=== PATIENT | female | born 1930 | race Caucasian/White ===

== ENCOUNTER 2017-11-09 13:08 | Inpatient (IN) | payer MEDICARE, MEDICAID ==
[2017-11-09] MEDS ORDERED: Sodium Chloride For Inhalation 0.9% 3 ML NEB ONE (13:41)
[2017-11-09 13:49] LABS: Band 25 % (5-11); Hemoglobin 11.8 g/dL (12.0-16.0); MDiff Complete? YES; Mean Corpuscular HGB CONC 34.5 g/dL (32.0-36.0); Mean Corpuscular Hemoglobin 29.7 pg (27.0-31.0); Mean Platelet Volume 6.4 fL (7.4-10.4); Monocytes 2 % (0-10); Neutrophil 72 % (42-75); PLT Morphology Comment Appears Adequate; Platelet Count 298 thou/uL (130-400); RBC Distribution Width 10.4 % (11.5-14.5); Reactive Lymphocytes 1 % (0-10); Red Blood Cell (RBC) Count 3.97 mill/uL (4.20-5.40); Toxic Granulation SLIGHT; Vacuoles SLIGHT; White Blood Cell (WBC) Count 23.6 thou/uL (4.8-10.8)
[2017-11-09 13:55] LABS: ALT (SGPT) 17 U/L (8-55); AST (SGOT) 15 U/L (5-34); Albumin 3.8 g/dL (3.4-4.8); Alkaline Phosphatase 64 U/L (40-150); Anion Gap 15 mmol/L (10-20); BUN (Urea Nitrogen) 16 mg/dL (9.8-20.1); Bilirubin, Total 0.6 mg/dL (0.2-1.2); Calc. Creatinine Clearance 0 mL/min (70-130); Calcium 8.8 mg/dL (7.8-10.44); Carbon Dioxide 26 mmol/L (23-31); Chloride 88 mmol/L (98-107); Estimated GFR-MDRD 60; Glucose 282 mg/dL (83-110); Potassium 4.6 mmol/L (3.5-5.1); Protein, Total 6.8 g/dL (6.0-8.3); Sodium 124 mmol/L (136-145)
[2017-11-09 13:58] LABS: CKMB 1.4 ng/mL (0-6.6); Troponin I 0.017 ng/mL (< 0.028)
--- NOTE | 2017-11-09 14:03 | RAD ---
SINGLE VIEW OF THE CHEST: Comparison: None. History: Cough, congestion, wheezing. FINDINGS: Single view of the chest shows a normal sized cardiomediastinal silhouette with atherosclerotic calci fications in the aorta. Increased interstitial markings are present. There is no evidence of consolid ation, mass, or pleural effusion. IMPRESSION: No evidence of acute cardiopulmonary disease. POS: [facility]
[2017-11-09] MEDS ORDERED: Levofloxacin 500 mg/D5W 100 ml Premix Bag ONE (14:06)
[2017-11-09 14:42] LABS: Magnesium 2.1 mg/dL (1.6-2.6); Phosphorus 3.3 mg/dL (2.3-4.7)
[2017-11-09 18:08] LABS: Bilirubin Negative (Negative); Blood, Urine Moderate (Negative); Clarity CLEAR (Clear); Glucose, Urine (Dipstick) Negative (Negative); Leukocyte Negative (Negative); Nitrite Negative (Negative); Protein, Urine (Dipstick) Negative (Neg-Trace); Specific Gravity, Urine 1.003 (1.002-1.036); Urobilinogen 0.2 mg/dL (0.2-1.0)
[2017-11-09 18:12] LABS: Bacteria/HPF None Seen HPF (None Seen); Hyaline Casts/LPF 0-3 HYALINE CAST LPF (0-3 Hyaline); Squamous Epithelial None Seen HPF (0-3); WBC/HPF None Seen HPF (0-3)
[2017-11-09] MEDS: Sodium Chloride 0.9% 1,000 ML IV SCH (19:09)
[2017-11-09] MEDS ORDERED: Morphine ER 30 MG TAB PO SCH (22:45)
[2017-11-09] MEDS ORDERED: Lisinopril/Hydrochlorothiazide 20 mg/12.5 mg Tablet PO SCH (22:45)
[2017-11-10] MEDS: Sodium Chloride 0.9% 1,000 ML IV SCH ×3 (01:52→12:39)
[2017-11-10] MEDS ORDERED: Acetaminophen 325 MG TAB PO PRN (03:17)
[2017-11-10] MEDS ORDERED: Ondansetron HCl/PF 4 MG/2 ML Vial IVP PRN (03:17)
[2017-11-10] MEDS ORDERED: BROMPHENIR PSEUDOEPHED DM PO SCH (06:00)
[2017-11-10] MEDS: Levothyroxine Sodium 75 MCG TAB PO SCH (07:24)
[2017-11-10 08:09] LABS: #Lymphocytes 0.6 thou/uL (1.20-3.40); #Neutrophils 14.5 thou/uL (1.40-6.50); %Basophils 0.1 % (0.0-1.0); %Eosinophils 0.3 % (0.0-10.0); %Lymphocytes 3.8 % (21.0-51.0); %Neutrophils 89.8 % (42.0-75.0); Hemoglobin 11.9 g/dL (12.0-16.0); Mean Corpuscular HGB CONC 34.4 g/dL (32.0-36.0); Mean Corpuscular Hemoglobin 31.4 pg (27.0-31.0); Mean Corpuscular Volume 91.4 fL (78.0-98.0); Platelet Count 290 thou/uL (130-400); RBC Distribution Width 11.2 % (11.5-14.5); Red Blood Cell (RBC) Count 3.77 mill/uL (4.20-5.40); White Blood Cell (WBC) Count 16.2 thou/uL (4.8-10.8)
[2017-11-10] MEDS: Diazepam 5 MG TAB PO SCH ×2 (08:13→20:22)
[2017-11-10] MEDS: Gabapentin 300 MG CAP PO SCH (08:13)
[2017-11-10] MEDS: Ascorbic Acid 500 mg Chewable Tablet PO SCH ×4 (08:13→20:30)
[2017-11-10] MEDS: DULoxetine 60 MG CAP PO SCH (08:13)
[2017-11-10] MEDS: Multivitamin W/ Minerals 1 TAB PO SCH ×3 (08:14→08:34)
[2017-11-10] MEDS: Senokot S 8.6-50 MG TAB PO SCH (08:14)
[2017-11-10] MEDS: Ziprasidone 20 MG CAP PO SCH ×3 (08:14→20:31)
[2017-11-10] MEDS: cloNIDine 0.1 MG TAB PO SCH ×3 (08:14→20:23)
[2017-11-10] MEDS: Morphine ER 30 MG TAB PO SCH ×2 (08:15→20:20)
[2017-11-10] MEDS: Enoxaparin Sodium 40 MG/0.4 ML SYRINGE SC SCH (08:15)
[2017-11-10] MEDS: Polyethylene Glycol 3350 17 GM Packet PO SCH (08:16)
[2017-11-10 08:24] LABS: Anion Gap 14 mmol/L (10-20); BUN (Urea Nitrogen) 10 mg/dL (9.8-20.1); Calc. Creatinine Clearance 58 mL/min (70-130); Carbon Dioxide 25 mmol/L (23-31); Chloride 91 mmol/L (98-107); Estimated GFR-MDRD 79; Glucose 182 mg/dL (83-110); Potassium 4.5 mmol/L (3.5-5.1); Sodium 125 mmol/L (136-145)
[2017-11-10] MEDS: busPIRone HCl 5 MG TAB PO SCH ×3 (08:45→20:22)
--- NOTE | 2017-11-10 08:48 | HP ---
CODE STATUS: FULL CODE. PRIMARY CARE PHYSICIAN: Dr. Raymond Niño. CHIEF COMPLAINT: Worsening cough. HISTORY OF PRESENT ILLNESS: This is an 87-year-old female patient with past medical history of hypot hyroidism, hyperlipidemia, hypertension came to the hospital after having moderate gradually worsenin g cough, with no clear triggers, no alleviating factors. The symptoms have been present since last n ight, associated with wheezing. The patient has had some cough medication with no relief. REVIEW OF SYSTEMS: Constitutional: No fever, no chill, generalized weakness. Respiratory: Patient had cough. No sputum production or shortness of breath. Cardiovascular: No chest pain, palpitatio ns, shortness of breath. Gastrointestinal: No nausea, vomiting, no diarrhea or abdominal pain. AUTOMATION MANAGER : No dizziness, headache, feeling lightheaded. Genitourinary: No burning with urination. EXTREMIT Y: No leg swelling. All other systems were reviewed and negative except for the findings mentioned above. PAST MEDICAL HISTORY: Patient has a history of hypothyroidism, hyperlipidemia, cholesterol, hyperten ry, breast cancer. PSYCHIATRIC HISTORY: Anxiety and depression. SOCIAL HISTORY: No alcohol, no smoking history. No drug use. Patient was a former smoker, quit 10 years ago. FAMILY HISTORY: Reviewed and noncontributory for current presentation. ALLERGIES: DEMEROL, MEPERIDINE, SECOBARBITAL. REPORTED MEDICATIONS: Alendronate, amlodipine, wshzirfr-itxhiqecn-gxecspyechz, duloxetine, gabapenti n, levothyroxine. PHYSICAL EXAMINATION: VITAL SIGNS: On presentation, blood pressure 136/49 with heart rate 89, respiratory rate was 19, tem perature 98.5, pain 10, oxygen duration 98 on room air. GENERAL APPEARANCE: The patient is alert, oriented, not in any acute distress. HEENT: Eyes, normal conjunctivae. Moist oral mucosa. Anicteric. NECK: No JVD. RESPIRATORY: Bilateral air entry is decreased with bilateral rales in the lower bases, bilateral whe ezing noted, scattered, symmetric expansion. CARDIOVASCULAR: Normal rate, regular rhythm. No murmurs, no gallop. No edema. ABDOMEN: Soft, normal bowel sounds. MUSCULOSKELETAL: Baseline range of motion and strength. No tenderness. SKIN: Warm and intact. No pallor, no rash, and redness. NEUROLOGIC: Baseline sensory. No evidence of any new focal weakness. Baseline speech. Cranial nerves seem to be intact. PSYCHIATRIC: Patient is in good mood, anxiety, oriented optimal judgment. LABORATORY DATA: Reviewed. Patient has white count 23.6, hemoglobin 11.8, MCV 86, platelet count 29 2. Chemistry: Sodium 134, potassium 4.6, chloride 88, carbon dioxide 26, anion gap 18, BUN 16, crea tinine 0.89, GFR 60, glucose 282. Lactic acid 1.8, calcium 8.8. LFTs are normal. CK-MB 1.4. Tropo fabián is negative. Beta natriuretic peptide 187. Serum total protein 6.8, albumin 2.8, globulin 3.0. UA was reviewed and was negative. Chest x-ray was reviewed. No evidence of acute cardiopulmonary d isease. EKG was reviewed and was discussed with performing physician in ER. Patient has normal sinu s rhythm at the rate of 78, nonspecific acute changes or ischemia. Patient has Q-waves in wave V1 an d V3. ASSESSMENT AND PLAN: The patient will be placed in the hospital with following medical problems: 1. Possible acute bronchitis. Patient has wheezing, shortness of breath, cough, sputum production. No history of chronic obstructive pulmonary disease in the past. Place the patient on Levaquin, giv e some DuoNebs, we will monitor, we will treat accordingly. 2. Hypothyroidism, continue hormone replacement. 3. Hyperlipidemia. Reconcile home meds, advised to have a diet with low-cholesterol. 4. Controlled hypertension on presentation. Reconcile home medications, adjust treatment as needed. 5. Leukocytosis, likely secondary to acute lung infection, treatment as above. 6. Normocytic anemia, it is stable, can be followed as outpatient. 7. Hyponatremia with sodium 134, this is moderate, we will monitor, will attempt to correct sodium _ ____ mEq in the next 24 hours. 8. Hyperglycemia with blood sugar 282. 9. Deep venous thrombosis prophylaxis.
[2017-11-10] MEDS ORDERED: Amlodipine 5 MG TAB PO SCH ×3 (09:00→22:30)
[2017-11-10] MEDS ORDERED: Morphine ER 30 MG TAB PO SCH (09:00)
[2017-11-10] MEDS ORDERED: Lisinopril/Hydrochlorothiazide 20 mg/12.5 mg Tablet PO SCH ×2 (09:00)
[2017-11-10] MEDS ORDERED: Ibuprofen 100 MG/5 ML UDCUP PO SCH (10:30)
[2017-11-10] MEDS ORDERED: Ibuprofen 200 MG TAB PO SCH (10:45)
[2017-11-10 12:30] VITALS: BMI 26.2
--- NOTE | 2017-11-10 13:24 | PDOC.PN ---
- Subjective Encounter Start Date: 11/10/17 Encounter Start Time: 13:24 Subjective: c/o pain in both feet,there for 4 years -: has seen multiple doctors & takem multiple meds-has RA -: denies any CP/congestion/cough/SOB - Objective Resuscitation Status: Resuscitation Status FULL:Full Resuscitation MAR Reviewed: Yes Vital Signs & Weight: Vital Signs (12 hours) Temp Pulse Pulse Resp BP BP BP 11/10/17 12:40 88 158/79 H 11/10/17 12:00 98.8 F 83 20 133/68 11/10/17 11:03 84 133/68 11/10/17 08:14 142/75 H 11/10/17 08:13 90 142/75 H 11/10/17 08:00 99.1 F 90 20 159/83 H 11/10/17 05:18 98.4 F 18 Pulse Ox 11/10/17 12:40 11/10/17 12:00 90 L 11/10/17 11:03 11/10/17 08:14 11/10/17 08:13 11/10/17 08:00 92 L 11/10/17 05:18 92 L Weight Admit Weight 149 lb 14.4 oz Weight 147 lb 12.8 oz I&O: 11/09/17 11/10/17 11/11/17 06:59 06:59 06:59 Intake Total 550 Balance 550 Result Diagrams: 11/10/17 07:59 11/10/17 07:59 Phys Exam - Physical Examination Constitutional: NAD HEENT: PERRLA, moist MMs, sclera anicteric, oral pharynx no lesions Neck: no nodes, no JVD, supple, full ROM Respiratory: no wheezing, no rales, no rhonchi, clear to auscultation bilateral Cardiovascular: RRR, no significant murmur Gastrointestinal: soft, non-tender, no distention, positive bowel sounds Musculoskeletal: no edema, pulses present Neurological: non-focal, normal sensation, moves all 4 limbs Deviation from normal: agitated Skin: no rash Dx/Plan (1) SIRS (systemic inflammatory response syndrome) Code(s): R65.10 - SIRS OF NON-INFECTIOUS ORIGIN W/O ACUTE ORGAN DYSFUNCTION Status: Acute (2) Acute bronchitis Code(s): J20.9 - ACUTE BRONCHITIS, UNSPECIFIED Status: Acute (3) Hyponatremia Code(s): E87.1 - HYPO-OSMOLALITY AND HYPONATREMIA Status: Acute (4) Anxiety and depression Code(s): F41.9 - ANXIETY DISORDER, UNSPECIFIED; F32.9 - MAJOR DEPRESSIVE DISORDER, SINGLE EPISODE, UNSPECIFIED Status: Chronic (5) Dyslipidemia Code(s): E78.5 - HYPERLIPIDEMIA, UNSPECIFIED Status: Chronic (6) Hypertension Code(s): I10 - ESSENTIAL (PRIMARY) HYPERTENSION Status: Chronic (7) Hypothyroidism Code(s): E03.9 - HYPOTHYROIDISM, UNSPECIFIED Status: Chronic - Plan continue antibiotics, PT/OT, psychiatric social worker supervisor, speech therapy, incentive spirometry, out of bed/ambulate, DVT proph w/SCDs cont empiric ABx.follow Cx results.WBC imrpoving -: DC HCTZ as a acuse of hyponatremia.reduce IVF -: Rehab eval.OT,PT,[facility] -: likley DC tomorrow if accpeted and sodium better -: no clear evidence of infection. * . Review of Systems - Review of Systems Constitutional: weakness, malaise. negative: fever, chills, sweats, other ENT: negative: Ear Pain, Ear Discharge, Nose Pain, Nose Discharge, Nose Congestion, Mouth Pain, Mouth Swelling, Throat Pain, Throat Swelling, Other Respiratory: negative: Cough, Dry, Shortness of Breath, Hemoptysis, SOB with Excertion, Pleuritic Pain, Sputum, Wheezing Cardiovascular: negative: chest pain, palpitations, orthopnea, paroxysmal nocturnal dyspnea, edema, light headedness, other Gastrointestinal: negative: Nausea, Vomiting, Abdominal Pain, Diarrhea, Constipation, Melena, Hematochezia, Other Genitourinary: negative: Dysuria, Frequency, Incontinence, Hematuria, Retention , Other Musculoskeletal: Foot Pain. negative: Neck Pain, Shoulder Pain, Arm Pain, Back Pain, Hand Pain, Leg Pain, Other Skin: negative: Rash, Lesions, Milo, Bruising, Other Neurological: negative: Weakness, Numbness, Incoordination, Change in Speech, Confusion, Seizures, Other - Medications/Allergies Allergies/Adverse Reactions: Allergies Allergy/AdvReac Type Severity Reaction Status Date / Time meperidine HCl [From Demerol] Allergy Verified 04/10/15 17:55 secobarbital sodium Allergy Verified 04/10/15 17:55 [From Seconal] Medications: Current Medications Acetaminophen (Tylenol) 650 mg PO Q4H PRN PRN Reason: Headache/Fever or Pain Last Admin: 11/10/17 09:55 Dose: 650 mg Albuterol/Ipratropium (Duoneb) 3 ml NEB Q4H PRN PRN Reason: SOB &/or Wheezing Amlodipine Besylate (Norvasc) 5 mg PO DAILY [facility] Last Admin: 11/10/17 08:13 Dose: 5 mg Ascorbic Acid (Vitamin C) 500 mg PO BID [facility] Last Admin: 11/10/17 08:33 Dose: 500 mg Atorvastatin Calcium (Lipitor) 10 mg PO HS [facility] Buspirone HCl (Buspar) 5 mg PO TID [facility] Last Admin: 11/10/17 08:45 Dose: 5 mg Cholecalciferol (Vitamin D3) 1,000 units PO DAILY [facility] Last Admin: 11/10/17 08:33 Dose: 1,000 units Clonidine (Catapres) 0.1 mg PO TID [facility] Last Admin: 11/10/17 08:14 Dose: 0.1 mg Diazepam (Valium) 5 mg PO BID [facility] Last Admin: 11/10/17 08:13 Dose: 5 mg Duloxetine HCl (Cymbalta) 60 mg PO DAILY [facility] Last Admin: 11/10/17 08:13 Dose: 60 mg Enoxaparin Sodium (Lovenox) 40 mg SC 0900 [facility] Last Admin: 11/10/17 08:15 Dose: 40 mg Famotidine (Pepcid) 20 mg PO HS [facility] Gabapentin (Neurontin) 300 mg PO DAILY [facility] Last Admin: 11/10/17 08:13 Dose: 300 mg Levofloxacin 500 mg/ Device 100 mls @ 100 mls/hr IVPB 1400 [facility] Sodium Chloride (Normal Saline 0.9%) 1,000 mls @ 50 mls/hr IV .Q20H [facility] Iron/Minerals/Multivitamins (Theragran M) 1 tab PO DAILY [facility] Last Admin: 11/10/17 08:34 Dose: 1 tab Levothyroxine Sodium (Synthroid) 75 mcg PO 0600 [facility] Last Admin: 11/10/17 07:24 Dose: 75 mcg Lisinopril (Zestril) 20 mg PO BID [facility] Morphine Sulfate (Ms Contin) 30 mg PO BID [facility] Last Admin: 11/10/17 08:15 Dose: 30 mg Ondansetron HCl (Zofran) 4 mg IVP Q6H PRN PRN Reason: Nausea/Vomiting Pantoprazole Sodium (Protonix) 40 mg PO DAILY [facility] [Bromphenir- (Pseudoephed-Dm Syr]) 0 each PO Q8HR [facility] Polyethylene Glycol (Miralax) 17 gm PO DAILY [facility] Last Admin: 11/10/17 08:16 Dose: 17 gm Senna/Docusate Sodium (Senokot S) 1 tab PO DAILY [facility] Last Admin: 11/10/17 08:14 Dose: 1 tab Tramadol HCl (Ultram) 50 mg PO PRN PRN PRN Reason: Pain Trazodone HCl (Desyrel) 50 mg PO HS PRN PRN Reason: Insomnia Ziprasidone (Geodon) 20 mg PO BID [facility] Last Admin: 11/10/17 08:47 Dose: Not Given
[2017-11-10] MEDS ORDERED: Sodium Chloride 0.9% 1,000 ML IV SCH (13:26)
[2017-11-10] MEDS: Lisinopril 20 MG TAB PO SCH (20:24)
[2017-11-10] MEDS: Atorvastatin Calcium 10 MG TAB PO SCH (20:29)
[2017-11-10] MEDS: Famotidine 20 MG TAB PO SCH (20:29)
[2017-11-10] MEDS ORDERED: cloNIDine 0.1 MG TAB PO PRN (22:23)
[2017-11-10] MEDS: Guaifenesin DM 100-10/5 ML UDCUP PO PRN (22:37)
[2017-11-11] MEDS: Levothyroxine Sodium 75 MCG TAB PO SCH (05:21)
[2017-11-11] MEDS: Polyethylene Glycol 3350 17 GM Packet PO SCH (08:13)
[2017-11-11] MEDS: Enoxaparin Sodium 40 MG/0.4 ML SYRINGE SC SCH (08:13)
[2017-11-11] MEDS: Morphine ER 30 MG TAB PO SCH ×2 (08:14→20:31)
[2017-11-11] MEDS: Senokot S 8.6-50 MG TAB PO SCH (08:14)
[2017-11-11] MEDS: Gabapentin 300 MG CAP PO SCH (08:14)
[2017-11-11] MEDS: Diazepam 5 MG TAB PO SCH ×2 (08:14→20:31)
[2017-11-11] MEDS: Multivitamin W/ Minerals 1 TAB PO SCH (08:15)
[2017-11-11] MEDS: Amlodipine 5 MG TAB PO SCH ×2 (08:16→20:30)
[2017-11-11] MEDS: Lisinopril 20 MG TAB PO SCH ×2 (08:16→20:31)
[2017-11-11] MEDS: cloNIDine 0.1 MG TAB PO SCH ×3 (08:16→20:30)
[2017-11-11] MEDS: busPIRone HCl 5 MG TAB PO SCH ×3 (08:16→20:30)
[2017-11-11] MEDS: DULoxetine 60 MG CAP PO SCH (08:16)
[2017-11-11] MEDS: Ascorbic Acid 500 mg Chewable Tablet PO SCH ×2 (08:16→20:31)
[2017-11-11 08:17] LABS: #Eosinphils 0.1 thou/uL (0.0-0.7); #Lymphocytes 0.6 thou/uL (1.20-3.40); #Monocytes 0.9 thou/uL (0.11-0.59); #Neutrophils 12.3 thou/uL (1.40-6.50); %Basophils 0.2 % (0.0-1.0); %Eosinophils 0.6 % (0.0-10.0); %Lymphocytes 4.5 % (21.0-51.0); %Monocytes 6.5 % (0.0-10.0); %Neutrophils 88.2 % (42.0-75.0); Hemoglobin 12.8 g/dL (12.0-16.0); Mean Corpuscular HGB CONC 33.9 g/dL (32.0-36.0); Mean Corpuscular Volume 91.4 fL (78.0-98.0); Mean Platelet Volume 5.9 fL (7.4-10.4); Platelet Count 336 thou/uL (130-400); RBC Distribution Width 11.1 % (11.5-14.5); Red Blood Cell (RBC) Count 4.12 mill/uL (4.20-5.40); White Blood Cell (WBC) Count 13.9 thou/uL (4.8-10.8)
[2017-11-11] MEDS: Guaifenesin DM 100-10/5 ML UDCUP PO PRN ×2 (08:27→21:08)
[2017-11-11 08:37] LABS: Anion Gap 14 mmol/L (10-20); BUN (Urea Nitrogen) 10 mg/dL (9.8-20.1); Calc. Creatinine Clearance 55 mL/min (70-130); Calcium 9.1 mg/dL (7.8-10.44); Carbon Dioxide 26 mmol/L (23-31); Chloride 90 mmol/L (98-107); Estimated GFR-MDRD 74; Glucose 178 mg/dL (83-110); Potassium 4.3 mmol/L (3.5-5.1); Sodium 126 mmol/L (136-145)
[2017-11-11] MEDS: Ziprasidone 20 MG CAP PO SCH ×2 (09:29→20:31)
[2017-11-11 14:23] LABS: Sodium 125 mmol/L (136-145)
--- NOTE | 2017-11-11 16:10 | PDOC.PN ---
- Subjective Encounter Start Date: 11/11/17 Encounter Start Time: 16:08 Subjective: pt was to be discharged but sodium level low -: pt refuses to adhere to fluid restriction,wants to leave -: no new complaints,no overnight events - Objective Resuscitation Status: Resuscitation Status FULL:Full Resuscitation MAR Reviewed: Yes Vital Signs & Weight: Vital Signs (12 hours) Temp Pulse Resp BP BP Pulse Ox 11/11/17 12:00 97.8 F 81 18 134/62 89 L 11/11/17 08:16 86 190/76 H 11/11/17 08:00 97.8 F 86 18 90 L 11/11/17 07:25 97.8 F 90 18 139/66 90 L Weight Admit Weight 149 lb 14.4 oz Weight 147 lb 12.8 oz I&O: 11/10/17 11/11/17 11/12/17 06:59 06:59 06:59 Intake Total 550 2670 240 Output Total 825 Balance 550 1845 240 Result Diagrams: 11/11/17 08:09 11/11/17 13:55 Additional Labs: Microbiology 11/09/17 15:05 Nasal swab Influenza Types A,B Direct EIA - Final labs reviewed Phys Exam - Physical Examination Constitutional: NAD HEENT: PERRLA, moist MMs, sclera anicteric, oral pharynx no lesions Neck: no nodes, no JVD, supple, full ROM Respiratory: no wheezing, no rales, no rhonchi, clear to auscultation bilateral Cardiovascular: RRR, no significant murmur, no rub Gastrointestinal: soft, non-tender, no distention, positive bowel sounds Musculoskeletal: no edema, pulses present Neurological: non-focal, normal sensation, moves all 4 limbs Dx/Plan (1) SIRS (systemic inflammatory response syndrome) Code(s): R65.10 - SIRS OF NON-INFECTIOUS ORIGIN W/O ACUTE ORGAN DYSFUNCTION Status: Acute Comment: no evidence of infection. (2) Acute bronchitis Code(s): J20.9 - ACUTE BRONCHITIS, UNSPECIFIED Status: Acute (3) Hyponatremia Code(s): E87.1 - HYPO-OSMOLALITY AND HYPONATREMIA Status: Acute (4) Anxiety and depression Code(s): F41.9 - ANXIETY DISORDER, UNSPECIFIED; F32.9 - MAJOR DEPRESSIVE DISORDER, SINGLE EPISODE, UNSPECIFIED Status: Chronic (5) Dyslipidemia Code(s): E78.5 - HYPERLIPIDEMIA, UNSPECIFIED Status: Chronic (6) Hypertension Code(s): I10 - ESSENTIAL (PRIMARY) HYPERTENSION Status: Chronic (7) Hypothyroidism Code(s): E03.9 - HYPOTHYROIDISM, UNSPECIFIED Status: Chronic - Plan DVT proph w/SCDs lost IV access. change ABx to PO. -: sodium still low .likley due to HCTZ & anti depressants -: will consult Nephrology.fluid restriction -: recheck in am -: HD stable .hold DC for now * . Review of Systems - Review of Systems Constitutional: negative: fever, chills, sweats, weakness, malaise, other ENT: negative: Ear Pain, Ear Discharge, Nose Pain, Nose Discharge, Nose Congestion, Mouth Pain, Mouth Swelling, Throat Pain, Throat Swelling, Other Respiratory: negative: Cough, Dry, Shortness of Breath, Hemoptysis, SOB with Excertion, Pleuritic Pain, Sputum, Wheezing Cardiovascular: negative: chest pain, palpitations, orthopnea, paroxysmal nocturnal dyspnea, edema, light headedness, other Gastrointestinal: negative: Nausea, Vomiting, Abdominal Pain, Diarrhea, Constipation, Melena, Hematochezia, Other Genitourinary: negative: Dysuria, Frequency, Incontinence, Hematuria, Retention , Other Musculoskeletal: Foot Pain. negative: Neck Pain, Shoulder Pain, Arm Pain, Back Pain, Hand Pain, Leg Pain, Other Neurological: negative: Weakness, Numbness, Incoordination, Change in Speech, Confusion, Seizures, Other - Medications/Allergies Allergies/Adverse Reactions: Allergies Allergy/AdvReac Type Severity Reaction Status Date / Time meperidine HCl [From Demerol] Allergy Verified 04/10/15 17:55 secobarbital sodium Allergy Verified 04/10/15 17:55 [From Seconal] Medications: Current Medications Acetaminophen (Tylenol) 650 mg PO Q4H PRN PRN Reason: Headache/Fever or Pain Last Admin: 11/10/17 09:55 Dose: 650 mg Albuterol/Ipratropium (Duoneb) 3 ml NEB Q4H PRN PRN Reason: SOB &/or Wheezing Amlodipine Besylate (Norvasc) 5 mg PO BID [facility] Last Admin: 11/11/17 08:16 Dose: 5 mg Ascorbic Acid (Vitamin C) 500 mg PO BID [facility] Last Admin: 11/11/17 08:16 Dose: 500 mg Atorvastatin Calcium (Lipitor) 10 mg PO HS [facility] Last Admin: 11/10/17 20:29 Dose: 10 mg Buspirone HCl (Buspar) 5 mg PO TID [facility] Last Admin: 11/11/17 08:16 Dose: 5 mg Cholecalciferol (Vitamin D3) 1,000 units PO DAILY [facility] Last Admin: 11/11/17 08:15 Dose: 1,000 units Clonidine (Catapres) 0.1 mg PO TID [facility] Last Admin: 11/11/17 08:16 Dose: 0.1 mg Clonidine (Catapres) 0.1 mg PO Q4H PRN PRN Reason: BP > 180/100 Diazepam (Valium) 5 mg PO BID [facility] Last Admin: 11/11/17 08:14 Dose: 5 mg Duloxetine HCl (Cymbalta) 60 mg PO DAILY [facility] Last Admin: 11/11/17 08:16 Dose: 60 mg Enoxaparin Sodium (Lovenox) 40 mg SC 0900 [facility] Last Admin: 11/11/17 08:13 Dose: 40 mg Famotidine (Pepcid) 20 mg PO HS [facility] Last Admin: 11/10/17 20:29 Dose: 20 mg Gabapentin (Neurontin) 300 mg PO DAILY [facility] Last Admin: 11/11/17 08:14 Dose: 300 mg Guaifenesin/Dextromethorphan (Robitussin Dm) 20 ml PO Q6H PRN PRN Reason: Cough Last Admin: 11/11/17 08:27 Dose: 20 ml Levofloxacin 500 mg/ Device 100 mls @ 100 mls/hr IVPB 1400 [facility] Last Admin: 11/11/17 13:58 Dose: 100 mls Iron/Minerals/Multivitamins (Theragran M) 1 tab PO DAILY [facility] Last Admin: 11/11/17 08:15 Dose: 1 tab Levothyroxine Sodium (Synthroid) 75 mcg PO 0600 [facility] Last Admin: 11/11/17 05:21 Dose: 75 mcg Lisinopril (Zestril) 20 mg PO BID [facility] Last Admin: 11/11/17 08:16 Dose: 20 mg Morphine Sulfate (Ms Contin) 30 mg PO BID [facility] Last Admin: 11/11/17 08:14 Dose: 30 mg Ondansetron HCl (Zofran) 4 mg IVP Q6H PRN PRN Reason: Nausea/Vomiting Pantoprazole Sodium (Protonix) 40 mg PO DAILY [facility] Last Admin: 11/11/17 08:15 Dose: 40 mg [Bromphenir- (Pseudoephed-Dm Syr]) 0 each PO Q8HR [facility] Polyethylene Glycol (Miralax) 17 gm PO DAILY [facility] Last Admin: 11/11/17 08:13 Dose: 17 gm Senna/Docusate Sodium (Senokot S) 1 tab PO DAILY [facility] Last Admin: 11/11/17 08:14 Dose: 1 tab Tramadol HCl (Ultram) 50 mg PO Q6H PRN PRN Reason: Moderate Pain (4-6) Trazodone HCl (Desyrel) 50 mg PO HS PRN PRN Reason: Insomnia Ziprasidone (Geodon) 20 mg PO BID [facility] Last Admin: 11/11/17 09:29 Dose: 20 mg
[2017-11-11] MEDS: Famotidine 20 MG TAB PO SCH (20:31)
[2017-11-11] MEDS: Atorvastatin Calcium 10 MG TAB PO SCH (20:31)
[2017-11-11] MEDS ORDERED: Sodium Chloride 0.9% 1,000 ML IV SCH (22:30)
[2017-11-12] MEDS: Sodium Chloride 0.9% 1,000 ML IV SCH ×4 (00:15→20:31)
--- NOTE | 2017-11-12 02:49 | CON ---
DATE OF CONSULTATION: 11/11/2017 CONSULTING PHYSICIAN: Davey Moore M.D. REQUESTING PHYSICIAN: Dr. Garza. REASON FOR CONSULTATION: Hyponatremia. IMPRESSION: Hyponatremia. This is likely hypovolemic hyponatremia. PLAN: 1. Discontinue fluid restriction. 2. Gentle IV fluid resuscitation with normal saline. 3. Increase protein intake of increased animal meat. 4. Further management to be dependent on the clinical course. HISTORY OF PRESENT ILLNESS: History is that of an 87-year-old female patient who presented here with worsening cough. Patient noted with a sodium of 124 on presentation and has remained in that range, thought the need for renal consultation. PAST MEDICAL HISTORY: Significant for hypothyroidism, dyslipidemia, cholesterol, hypertension and br east cancer. SOCIAL HISTORY: No alcohol, no tobacco, no illicit drug use. FAMILY HISTORY: None significant related to presenting illness. ALLERGIES: DEMEROL, MEPERIDINE, and SECOBARBITAL. REVIEW OF SYSTEMS: As documented in the body of the history. Other systems reviewed and found not t o be significantly related to the presenting illness. PHYSICAL EXAMINATION: GENERAL: The patient was found to be somewhat hard hearing noted with the following vital signs. VITAL SIGNS: Afebrile with temperature 97.6, pulse 85, respirations of 20, O2 sat , blood press ure 149/66. HEENT: Unremarkable with dry oral mucosa. Neck is supple. No conjunctival injection or icterus. CARDIOVASCULAR SYSTEM: First and second heart sounds were heard. RESPIRATORY SYSTEM: Clear to auscultation anteriorly. DIGESTIVE SYSTEM: Reviewed a benign abdomen. EXTREMITIES: No peripheral edema. SKIN: Revealed dry skin. SUMMARY: An 87-year-old female patient who presented here with worsening shortness of breath noted w ith hyponatremia likely in the context of hypovolemic hyponatremia possibly compounded by suboptimall y controlled hypothyroidism. Thank you for this consultation. We will follow with you.
[2017-11-12] MEDS: Levothyroxine Sodium 75 MCG TAB PO SCH (05:43)
[2017-11-12 05:56] LABS: Anion Gap 12 mmol/L (10-20); BUN (Urea Nitrogen) 11 mg/dL (9.8-20.1); Calc. Creatinine Clearance 58 mL/min (70-130); Calcium 8.4 mg/dL (7.8-10.44); Carbon Dioxide 26 mmol/L (23-31); Chloride 91 mmol/L (98-107); Estimated GFR-MDRD 79; Glucose 119 mg/dL (83-110); Potassium 4.2 mmol/L (3.5-5.1); Sodium 125 mmol/L (136-145)
[2017-11-12] MEDS: Morphine ER 30 MG TAB PO SCH ×2 (08:13→20:06)
[2017-11-12] MEDS: Diazepam 5 MG TAB PO SCH ×2 (08:15→20:04)
[2017-11-12] MEDS: cloNIDine 0.1 MG TAB PO SCH ×3 (08:17→20:06)
[2017-11-12] MEDS: Amlodipine 5 MG TAB PO SCH ×2 (08:17→20:04)
[2017-11-12] MEDS: Lisinopril 20 MG TAB PO SCH ×2 (08:18→20:07)
[2017-11-12] MEDS: DULoxetine 60 MG CAP PO SCH (08:19)
[2017-11-12] MEDS: Ascorbic Acid 500 mg Chewable Tablet PO SCH ×2 (08:19→20:04)
[2017-11-12] MEDS: Gabapentin 300 MG CAP PO SCH (08:20)
[2017-11-12] MEDS: busPIRone HCl 5 MG TAB PO SCH ×3 (08:20→20:06)
[2017-11-12] MEDS: Multivitamin W/ Minerals 1 TAB PO SCH (08:21)
[2017-11-12] MEDS: Ziprasidone 20 MG CAP PO SCH ×2 (08:22→20:04)
[2017-11-12] MEDS: Senokot S 8.6-50 MG TAB PO SCH (08:22)
[2017-11-12] MEDS: Polyethylene Glycol 3350 17 GM Packet PO SCH (08:22)
[2017-11-12] MEDS: Enoxaparin Sodium 40 MG/0.4 ML SYRINGE SC SCH (08:23)
[2017-11-12] MEDS: Guaifenesin DM 100-10/5 ML UDCUP PO PRN ×3 (08:26→20:08)
[2017-11-12 13:26] LABS: Free T4 (Free Thyroxine) 1.06 ng/dL (0.70-1.48)
[2017-11-12] MEDS: traMADol HCl 50 MG TAB PO PRN (14:27)
--- NOTE | 2017-11-12 15:04 | PDOC.PN ---
- Subjective Encounter Start Date: 11/12/17 Encounter Start Time: 07:00 Pt seen for followup re: acute bronchitis. Denies chest pain, reports occasional cough. No fevers or chills. - Objective Resuscitation Status: Resuscitation Status FULL:Full Resuscitation MAR Reviewed: Yes Vital Signs & Weight: Vital Signs (12 hours) Temp Pulse Resp BP BP Pulse Ox 11/12/17 14:23 113/55 L 11/12/17 11:17 97.9 F 80 18 157/69 H 96 11/12/17 08:18 140/65 11/12/17 08:17 81 140/65 11/12/17 08:07 97.5 F L 81 18 140/65 93 L 11/12/17 08:00 97.5 F L 81 18 93 L Weight Admit Weight 149 lb 14.4 oz Weight 147 lb 12.8 oz I&O: 11/11/17 11/12/17 11/13/17 06:59 06:59 06:59 Intake Total 2670 1680 Output Total 825 Balance 1845 1680 Result Diagrams: 11/11/17 08:09 11/12/17 05:21 Additional Labs: Labs reviewed by me Phys Exam - Physical Examination Constitutional: NAD HEENT: moist MMs Neck: supple Respiratory: clear to auscultation bilateral Cardiovascular: RRR Gastrointestinal: soft Neurological: moves all 4 limbs Psychiatric: normal affect Skin: no rash Dx/Plan (1) Acute bronchitis Code(s): J20.9 - ACUTE BRONCHITIS, UNSPECIFIED Status: Acute Comment: continue levofloxacin (2) Hyponatremia Code(s): E87.1 - HYPO-OSMOLALITY AND HYPONATREMIA Status: Acute Comment: No change in soidum level, pt has not yet received because she refused IV fluids overnight. Also, has problems with IV access. (3) Dyslipidemia Code(s): E78.5 - HYPERLIPIDEMIA, UNSPECIFIED Status: Chronic Comment: continue statin (4) Hypertension Code(s): I10 - ESSENTIAL (PRIMARY) HYPERTENSION Status: Chronic Comment: controlled (5) Hypothyroidism Code(s): E03.9 - HYPOTHYROIDISM, UNSPECIFIED Status: Chronic - Plan * . Review of Systems - Review of Systems Respiratory: Cough, Dry. negative: Shortness of Breath, Hemoptysis, SOB with Excertion, Pleuritic Pain, Sputum, Wheezing Cardiovascular: negative: chest pain, palpitations, orthopnea, paroxysmal nocturnal dyspnea, edema, light headedness - Medications/Allergies Allergies/Adverse Reactions: Allergies Allergy/AdvReac Type Severity Reaction Status Date / Time meperidine HCl [From Demerol] Allergy Verified 04/10/15 17:55 secobarbital sodium Allergy Verified 04/10/15 17:55 [From Seconal] Medications: Current Medications Acetaminophen (Tylenol) 650 mg PO Q4H PRN PRN Reason: Headache/Fever or Pain Last Admin: 11/10/17 09:55 Dose: 650 mg Albuterol/Ipratropium (Duoneb) 3 ml NEB Q4H PRN PRN Reason: SOB &/or Wheezing Amlodipine Besylate (Norvasc) 5 mg PO BID [facility] Last Admin: 11/12/17 08:17 Dose: 5 mg Ascorbic Acid (Vitamin C) 500 mg PO BID [facility] Last Admin: 11/12/17 08:19 Dose: Not Given Atorvastatin Calcium (Lipitor) 10 mg PO [facility] Last Admin: 11/11/17 20:31 Dose: 10 mg Buspirone HCl (Buspar) 5 mg PO TID [facility] Last Admin: 11/12/17 14:23 Dose: 5 mg Cholecalciferol (Vitamin D3) 1,000 units PO DAILY [facility] Last Admin: 11/12/17 08:20 Dose: 1,000 units Clonidine (Catapres) 0.1 mg PO TID [facility] Last Admin: 11/12/17 14:23 Dose: Not Given Clonidine (Catapres) 0.1 mg PO Q4H PRN PRN Reason: BP > 180/100 Diazepam (Valium) 5 mg PO BID [facility] Last Admin: 11/12/17 08:15 Dose: 5 mg Duloxetine HCl (Cymbalta) 60 mg PO DAILY [facility] Last Admin: 11/12/17 08:19 Dose: 60 mg Enoxaparin Sodium (Lovenox) 40 mg SC 0900 [facility] Last Admin: 11/12/17 08:23 Dose: 40 mg Famotidine (Pepcid) 20 mg PO HS [facility] Last Admin: 11/11/17 20:31 Dose: 20 mg Gabapentin (Neurontin) 300 mg PO DAILY [facility] Last Admin: 11/12/17 08:20 Dose: 300 mg Guaifenesin/Dextromethorphan (Robitussin Dm) 20 ml PO Q6H PRN PRN Reason: Cough Last Admin: 11/12/17 14:21 Dose: 20 ml Sodium Chloride (Normal Saline 0.9%) 1,000 mls @ 100 mls/hr IV .Q10H [facility] Last Admin: 11/12/17 00:15 Dose: Not Given Iron/Minerals/Multivitamins (Theragran M) 1 tab PO DAILY [facility] Last Admin: 11/12/17 08:21 Dose: 1 tab Levofloxacin (Levaquin) 500 mg PO 0600 [facility] Last Admin: 11/12/17 05:42 Dose: 500 mg Levothyroxine Sodium (Synthroid) 75 mcg PO 0600 [facility] Last Admin: 11/12/17 05:43 Dose: 75 mcg Lisinopril (Zestril) 20 mg PO BID [facility] Last Admin: 11/12/17 08:18 Dose: 20 mg Morphine Sulfate (Ms Contin) 30 mg PO BID [facility] Last Admin: 11/12/17 08:13 Dose: 30 mg Ondansetron HCl (Zofran) 4 mg IVP Q6H PRN PRN Reason: Nausea/Vomiting Pantoprazole Sodium (Protonix) 40 mg PO DAILY [facility] Last Admin: 11/12/17 08:21 Dose: 40 mg [Bromphenir- (Pseudoephed-Dm Syr]) 0 each PO Q8HR [facility] Polyethylene Glycol (Miralax) 17 gm PO DAILY [facility] Last Admin: 11/12/17 08:22 Dose: 17 gm Senna/Docusate Sodium (Senokot S) 1 tab PO DAILY [facility] Last Admin: 11/12/17 08:22 Dose: 1 tab Tramadol HCl (Ultram) 50 mg PO Q6H PRN PRN Reason: Moderate Pain (4-6) Last Admin: 11/12/17 14:27 Dose: 50 mg Trazodone HCl (Desyrel) 50 mg PO HS PRN PRN Reason: Insomnia Ziprasidone (Geodon) 20 mg PO BID [facility] Last Admin: 11/12/17 08:22 Dose: 20 mg
[2017-11-12 18:15] LABS: Sodium 128 mmol/L (136-145)
[2017-11-12] MEDS: Atorvastatin Calcium 10 MG TAB PO SCH (20:06)
[2017-11-12] MEDS: Famotidine 20 MG TAB PO SCH (20:06)
--- NOTE | 2017-11-12 22:06 | PRG ---
DATE OF SERVICE: 11/12/2017 SUBJECTIVE: The patient was seen and examined noted with the following vital signs. PHYSICAL EXAMINATION: VITAL SIGNS: Afebrile with temperature 97.9, pulse 80, blood pressure 113/55. HEENT: Unremarkable. CARDIOVASCULAR: First and second heart sounds were heard. RESPIRATORY: Clear to auscultation. DIGESTIVE: Revealed a benign abdomen. EXTREMITIES: No peripheral edema. SKIN: No new gross rash. LYMPHATICS: No peripheral lymphadenopathy. LABORATORY INVESTGATION: Showed a sodium of 125. Patient has not started any treatment towards this hyponatremia. IMPRESSION: Hyponatremia. This is likely hypovolemic hyponatremia. PLAN: 1. The patient to benefit from increase protein intake and normal saline infusion. 2. Monitor sodium level closely.
[2017-11-13] MEDS: traMADol HCl 50 MG TAB PO PRN ×3 (02:12→22:29)
[2017-11-13] MEDS: traZODone HCl 50 MG TAB PO PRN ×2 (02:12→22:30)
[2017-11-13] MEDS: Sodium Chloride 0.9% 1,000 ML IV SCH ×2 (05:50→16:46)
[2017-11-13] MEDS: Levothyroxine Sodium 75 MCG TAB PO SCH (05:51)
[2017-11-13 07:48] LABS: Sodium 128 mmol/L (136-145)
[2017-11-13] MEDS: Diazepam 5 MG TAB PO SCH ×2 (08:06→20:06)
[2017-11-13] MEDS: Morphine ER 30 MG TAB PO SCH ×2 (08:06→20:08)
[2017-11-13] MEDS: cloNIDine 0.1 MG TAB PO SCH ×3 (08:11→20:07)
[2017-11-13] MEDS: Lisinopril 20 MG TAB PO SCH ×2 (08:12→20:06)
[2017-11-13] MEDS: Amlodipine 5 MG TAB PO SCH ×2 (08:12→20:07)
[2017-11-13] MEDS: busPIRone HCl 5 MG TAB PO SCH ×3 (08:13→20:07)
[2017-11-13] MEDS: DULoxetine 60 MG CAP PO SCH (08:13)
[2017-11-13] MEDS: Ziprasidone 20 MG CAP PO SCH ×2 (08:14→20:08)
[2017-11-13] MEDS: Multivitamin W/ Minerals 1 TAB PO SCH (08:15)
[2017-11-13] MEDS: Senokot S 8.6-50 MG TAB PO SCH (08:16)
[2017-11-13] MEDS: Gabapentin 300 MG CAP PO SCH (08:17)
[2017-11-13] MEDS: Enoxaparin Sodium 40 MG/0.4 ML SYRINGE SC SCH (08:21)
[2017-11-13] MEDS: Ascorbic Acid 500 mg Chewable Tablet PO SCH ×2 (08:21→20:09)
[2017-11-13] MEDS: Polyethylene Glycol 3350 17 GM Packet PO SCH (08:22)
[2017-11-13] MEDS: Guaifenesin DM 100-10/5 ML UDCUP PO PRN (09:12)
[2017-11-13 14:30] LABS: Anion Gap 14 mmol/L (10-20); BUN (Urea Nitrogen) 12 mg/dL (9.8-20.1); Calc. Creatinine Clearance 50 mL/min (70-130); Calcium 8.4 mg/dL (7.8-10.44); Carbon Dioxide 22 mmol/L (23-31); Chloride 98 mmol/L (98-107); Estimated GFR-MDRD 67; Glucose 185 mg/dL (83-110); Potassium 4.6 mmol/L (3.5-5.1); Sodium 129 mmol/L (136-145)
[2017-11-13] MEDS: ALPRAZolam 0.25 MG TAB PO PRN (16:45)
--- NOTE | 2017-11-13 17:26 | PDOC.PN ---
- Subjective Encounter Start Date: 11/13/17 Encounter Start Time: 11:00 Pt seen for followup re: hyponatremia. Denies chest pain, shortness of breath, fevers or chills. No nausea or vomiting. - Objective Resuscitation Status: Resuscitation Status FULL:Full Resuscitation MAR Reviewed: Yes Vital Signs & Weight: Vital Signs (12 hours) Temp Pulse Resp BP BP Pulse Ox 11/13/17 15:10 129/59 L 11/13/17 08:12 87 174/72 H 11/13/17 08:11 172/74 H 11/13/17 08:00 97.7 F 87 20 172/74 H 99 Weight Admit Weight 149 lb 14.4 oz Weight 147 lb 12.8 oz I&O: 11/12/17 11/13/17 11/14/17 06:59 06:59 06:59 Intake Total 1680 2500 Output Total 1100 Balance 1680 1400 Result Diagrams: 11/11/17 08:09 11/13/17 14:10 Additional Labs: Labs reviewed by me Phys Exam - Physical Examination Constitutional: NAD HEENT: moist MMs Neck: supple Respiratory: clear to auscultation bilateral Cardiovascular: RRR Neurological: moves all 4 limbs Psychiatric: normal affect Dx/Plan (1) Hyponatremia Code(s): E87.1 - HYPO-OSMOLALITY AND HYPONATREMIA Status: Acute Comment: sodium level improving (2) Acute bronchitis Code(s): J20.9 - ACUTE BRONCHITIS, UNSPECIFIED Status: Acute Comment: on levofloxacin (3) Dyslipidemia Code(s): E78.5 - HYPERLIPIDEMIA, UNSPECIFIED Status: Chronic Comment: on statin (4) Hypertension Code(s): I10 - ESSENTIAL (PRIMARY) HYPERTENSION Status: Chronic Comment: controlled (5) Hypothyroidism Code(s): E03.9 - HYPOTHYROIDISM, UNSPECIFIED Status: Chronic Comment: stable - Plan * . likely discharge to [facility] tomorrow AM Review of Systems - Review of Systems Respiratory: negative: Cough, Shortness of Breath, SOB with Excertion, Pleuritic Pain, Wheezing Cardiovascular: negative: chest pain, palpitations, orthopnea, paroxysmal nocturnal dyspnea, edema, light headedness - Medications/Allergies Allergies/Adverse Reactions: Allergies Allergy/AdvReac Type Severity Reaction Status Date / Time meperidine HCl [From Demerol] Allergy Verified 04/10/15 17:55 secobarbital sodium Allergy Verified 04/10/15 17:55 [From Seconal] Medications: Current Medications Acetaminophen (Tylenol) 650 mg PO Q4H PRN PRN Reason: Headache/Fever or Pain Last Admin: 11/10/17 09:55 Dose: 650 mg Albuterol/Ipratropium (Duoneb) 3 ml NEB Q4H PRN PRN Reason: SOB &/or Wheezing Alprazolam (Xanax) 0.25 mg PO TIDPRN PRN PRN Reason: Anxiety Last Admin: 11/13/17 16:45 Dose: 0.25 mg Amlodipine Besylate (Norvasc) 5 mg PO BID [facility] Last Admin: 11/13/17 08:12 Dose: 5 mg Ascorbic Acid (Vitamin C) 500 mg PO BID [facility] Last Admin: 11/13/17 08:21 Dose: Not Given Atorvastatin Calcium (Lipitor) 10 mg PO HS [facility] Last Admin: 11/12/17 20:06 Dose: 10 mg Buspirone HCl (Buspar) 5 mg PO TID [facility] Last Admin: 11/13/17 15:11 Dose: 5 mg Cholecalciferol (Vitamin D3) 1,000 units PO DAILY [facility] Last Admin: 11/13/17 08:15 Dose: 1,000 units Clonidine (Catapres) 0.1 mg PO TID [facility] Last Admin: 11/13/17 15:10 Dose: 0.1 mg Clonidine (Catapres) 0.1 mg PO Q4H PRN PRN Reason: BP > 180/100 Diazepam (Valium) 5 mg PO BID [facility] Last Admin: 11/13/17 08:06 Dose: 5 mg Duloxetine HCl (Cymbalta) 60 mg PO DAILY [facility] Last Admin: 11/13/17 08:13 Dose: 60 mg Enoxaparin Sodium (Lovenox) 40 mg SC 0900 [facility] Last Admin: 11/13/17 08:21 Dose: 40 mg Famotidine (Pepcid) 20 mg PO HS [facility] Last Admin: 11/12/17 20:06 Dose: 20 mg Gabapentin (Neurontin) 300 mg PO DAILY [facility] Last Admin: 11/13/17 08:17 Dose: 300 mg Guaifenesin/Dextromethorphan (Robitussin Dm) 20 ml PO Q6H PRN PRN Reason: Cough Last Admin: 11/13/17 09:12 Dose: 20 ml Sodium Chloride (Normal Saline 0.9%) 1,000 mls @ 100 mls/hr IV .Q10H [facility] Last Admin: 11/13/17 16:46 Dose: 1,000 mls Iron/Minerals/Multivitamins (Theragran M) 1 tab PO DAILY [facility] Last Admin: 11/13/17 08:15 Dose: 1 tab Levofloxacin (Levaquin) 500 mg PO 0600 [facility] Last Admin: 11/13/17 05:51 Dose: 500 mg Levothyroxine Sodium (Synthroid) 75 mcg PO 0600 [facility] Last Admin: 11/13/17 05:51 Dose: 75 mcg Lisinopril (Zestril) 20 mg PO BID [facility] Last Admin: 11/13/17 08:12 Dose: 20 mg Morphine Sulfate (Ms Contin) 30 mg PO BID [facility] Last Admin: 11/13/17 08:06 Dose: 30 mg Ondansetron HCl (Zofran) 4 mg IVP Q6H PRN PRN Reason: Nausea/Vomiting Pantoprazole Sodium (Protonix) 40 mg PO DAILY [facility] Last Admin: 11/13/17 08:17 Dose: 40 mg [Bromphenir- (Pseudoephed-Dm Syr]) 0 each PO Q8HR [facility] Polyethylene Glycol (Miralax) 17 gm PO DAILY [facility] Last Admin: 11/13/17 08:22 Dose: 17 gm Senna/Docusate Sodium (Senokot S) 1 tab PO DAILY [facility] Last Admin: 11/13/17 08:16 Dose: 1 tab Tramadol HCl (Ultram) 50 mg PO Q6H PRN PRN Reason: Moderate Pain (4-6) Last Admin: 11/13/17 08:20 Dose: 50 mg Trazodone HCl (Desyrel) 50 mg PO HS PRN PRN Reason: Insomnia Last Admin: 11/13/17 02:12 Dose: 50 mg Ziprasidone (Geodon) 20 mg PO BID [facility] Last Admin: 11/13/17 08:14 Dose: 20 mg
[2017-11-13 18:21] LABS: Sodium 129 mmol/L (136-145)
--- NOTE | 2017-11-13 18:22 | PRG ---
DATE OF SERVICE: 11/13/2017 SUBJECTIVE: The patient was seen and examined noted with following vital signs. PHYSICAL EXAMINATION: VITAL SIGNS: Afebrile, temperature 97.7, pulse 87, respiratory rate 20, O2 sat 99%, and blood pressu re 129/59. HEENT: Unremarkable. CARDIOVASCULAR: First and heart sounds were heard. RESPIRATORY: Clear to auscultation. DIGESTIVE: Revealed a benign abdomen. EXTREMITIES: Show no peripheral edema. SKIN: No new gross rash. LYMPHATICS: No peripheral lymphadenopathy. LABORATORY INVESTIGATIONS: Significant for sodium that has gone up to 129. IMPRESSION: Hyponatremia in the context of hypovolemic hyponatremia. PLAN: 1. From the renal standpoint, the patient is good for discharge. 2. Outpatient Nephrology followup status post discharge strongly recommended the patient to be able to see me within the next 2-4 weeks with a repeat chemistry.
[2017-11-13] MEDS: Famotidine 20 MG TAB PO SCH (20:06)
[2017-11-13] MEDS: Atorvastatin Calcium 10 MG TAB PO SCH (20:06)
[2017-11-14] MEDS: Sodium Chloride 0.9% 1,000 ML IV SCH ×2 (00:20→11:18)
[2017-11-14] MEDS: ALPRAZolam 0.25 MG TAB PO PRN (04:33)
[2017-11-14] MEDS: traMADol HCl 50 MG TAB PO PRN (05:14)
[2017-11-14] MEDS: Levothyroxine Sodium 75 MCG TAB PO SCH (05:15)
[2017-11-14 06:22] LABS: Anion Gap 9 mmol/L (10-20); BUN (Urea Nitrogen) 10 mg/dL (9.8-20.1); Calc. Creatinine Clearance 54 mL/min (70-130); Calcium 8.8 mg/dL (7.8-10.44); Carbon Dioxide 28 mmol/L (23-31); Chloride 98 mmol/L (98-107); Estimated GFR-MDRD 73; Glucose 153 mg/dL (83-110); Potassium 4.4 mmol/L (3.5-5.1); Sodium 131 mmol/L (136-145)
[2017-11-14] MEDS: Morphine ER 30 MG TAB PO SCH (08:13)
[2017-11-14] MEDS: Polyethylene Glycol 3350 17 GM Packet PO SCH (08:14)
[2017-11-14] MEDS: Diazepam 5 MG TAB PO SCH (08:14)
[2017-11-14] MEDS: Ziprasidone 20 MG CAP PO SCH (08:16)
[2017-11-14] MEDS: busPIRone HCl 5 MG TAB PO SCH ×2 (08:16→15:15)
[2017-11-14] MEDS: Gabapentin 300 MG CAP PO SCH (08:16)
[2017-11-14] MEDS: DULoxetine 60 MG CAP PO SCH (08:16)
[2017-11-14] MEDS: cloNIDine 0.1 MG TAB PO SCH ×2 (08:17→15:15)
[2017-11-14] MEDS: Amlodipine 5 MG TAB PO SCH (08:17)
[2017-11-14] MEDS: Lisinopril 20 MG TAB PO SCH (08:17)
[2017-11-14] MEDS: Multivitamin W/ Minerals 1 TAB PO SCH (08:18)
[2017-11-14] MEDS: Senokot S 8.6-50 MG TAB PO SCH (08:18)
[2017-11-14] MEDS: Guaifenesin DM 100-10/5 ML UDCUP PO PRN (08:20)
[2017-11-14] MEDS: Enoxaparin Sodium 40 MG/0.4 ML SYRINGE SC SCH (08:24)
[2017-11-14] MEDS: Ascorbic Acid 500 mg Chewable Tablet PO SCH (09:06)
[2017-11-14 09:38] VITALS: TEMP 97.9
[2017-11-14 15:16] VITALS: BP 135/64
--- NOTE | 2017-11-14 22:37 | DIS ---
DATE OF ADMISSION: 11/09/2017 DATE OF DISCHARGE: 11/14/2017 PRIMARY CARE PROVIDER: Raymond Niño D.O. DISCHARGE DIAGNOSES: 1. Acute bronchitis. 2. Hyponatremia. 3. Physical deconditioning. CONSULTATIONS DURING THIS HOSPITALIZATION: Nephrology, Dr. Moore. CONDITION OF PATIENT ON THE DAY OF DISCHARGE: Stable. I assessed Ms. Narvaez on the day of discharge. She denies any chest pain, shortness of breath, fever or chills. Vital signs are stable. S1 and S2 are heard, regular. Lungs are clear to auscultation bilaterally. HOSPITAL COURSE: Ms. Narvaez is a pleasant 87-year-old lady who was admitted to [facility] on 11/09/2017 for acute bronchitis. She was treated with antibiotics. She improved clini mello. She is being discharged with 4 more days of antibiotics. She was also hyponatremic at the time of admission, with a sodium level of 124. It did not improve w ith fluid restriction. She was seen by Nephrology Service and it was felt that her hyponatremia was secondary to dehydration. She received intravenous normal saline, with improvement of her sodium lev el to 131 on the day of discharge. She was physically deconditioned. She is being discharged to [facility]. Her TSH was elevated at 7.92, but her free T3 and free T4 were normal during this hospitalization. DISCHARGE MEDICATIONS: Alendronate 10 mg daily, Norvasc 5 mg daily, vitamin C 500 mg 2 times a day, BuSpar 5 mg 3 times a day, brompheniramine/pseudoephedrine/DM 118 mL every 8 hours, vitamin D3 of 100 0 units daily, clonidine 0.1 mg 3 times a day, Valium 5 mg 2 times a day, Cymbalta 60 mg daily, Neuro ntin 300 mg daily, Robitussin 20 mL every 6 hours as needed, DuoNeb 3 mL every 4 hours as needed, Lev aquin 500 mg daily for 4 more days, Synthroid 75 mcg daily, lisinopril 20 mg 2 times a day, MS Contin 30 mg 2 times a day, Thera-Tabs M caplet 1 tablet daily, MiraLax 17 grams daily, ranitidine 150 mg a t bedtime, Senokot DS 1 tablet daily, Zocor 20 mg at bedtime, tramadol 50 mg every 6 hours as needed, trazodone 50 mg at bedtime as needed, Geodon 20 mg 2 times a day. Many thanks for allowing me to participate in your patient's care. Please feel free to contact me wi th any questions or concerns. DISCHARGE DESTINATION: [facility]. TOTAL AMOUNT OF TIME SPENT COORDINATING THIS DISCHARGE: 33 minutes.
== END 2017-11-14 16:13 | DRG 202 ==
LOC: SCSER 13:08 → 2SE 14:25 → ONC 11-10 15:38
PROVIDERS: ADMIT Internal Medicine; ATTEND Internal Medicine
DX: J20.9 Acute bronchitis, unspecified (principal); E87.1 Hypo-osmolality and hyponatremia; R65.10 Systemic inflammatory response syndrome (SIRS) of non-infectious origin without acute organ dysfunction; E03.9 Hypothyroidism, unspecified; E78.5 Hyperlipidemia, unspecified; D72.829 Elevated white blood cell count, unspecified; D64.9 Anemia, unspecified; R73.9 Hyperglycemia, unspecified; F41.9 Anxiety disorder, unspecified; I10 Essential (primary) hypertension; E86.1 Hypovolemia; F32.9 Major depressive disorder, single episode, unspecified; Z87.891 Personal history of nicotine dependence; Z85.3 Personal history of malignant neoplasm of breast
CPT/HCPCS: 36415; 51701; 71045; 80048; 80053; 81003; 81015; 82553; 83605; 83735; 83880; 83930; 83935; 84100; 84295; 84300; 84439; 84443; 84481; 84484; 85025; 87040; 87804; 93005; 96365; A4353; G8978-GP-CL; G8979-GP-CI; G8987-GO-CL; G8988-GO-CK; G8996-GN-CI; G8996-GN-CJ; G8997-GN-CI; J1650; J1956; J7620